=== PATIENT | female | born 1995 | race Caucasian/White ===

== ENCOUNTER 2017-07-17 15:26 | Emergency (ER) | payer OTHER ==
--- NOTE | 2017-07-17 16:06 | CPEKG ---
Heart Rate: 55 RR Interval: 1091 P-R Interval: 84 QRSD Interval: 88 QT Interval: 440 QTC Interval: 421 P [place]: 0 QRS [place]: 89 T Wave [place]: 54 EKG Severity - BORDERLINE ECG - EKG Impression: SINUS RHYTHM EKG Impression: SHORT VT INTERVAL, ACCELERATED AV CONDUCTION Electronically Signed By: Yareli Perez 17-Jul-2017 22:19:35
[2017-07-17 16:18] LABS: PLATELET COUNT 256 10^3/uL (150-400)
--- NOTE | 2017-07-17 16:52 | EDPHY ---
H & P Smoking Status: Never smoked Time Seen by Provider: 07/17/17 15:37 HPI/ROS: CHIEF COMPLAINT: Pleuritic chest pain HISTORY OF PRESENT ILLNESS: 22-year-old female presents to the emergency department with pleuritic chest pain that has been intermittent over last several days. She states that she does not feel short of breath but feels that if she takes a big deep breath she has pain in her chest. She was initially seen at the [facility] and she was advised to come to the emergency department for evaluation. She has no headache. She has no abdominal pain. No calf pain or swelling. She has never had pain like this in the past. She does report that she has been under a great deal of stress lately studying for finals. She also reports a sensation where her vision is lost which she has had it a few times intermittently over last several weeks. She does not currently have that sensation now. Her last episode was in class earlier today. No pertinent family history of early heart disease. REVIEW OF SYSTEMS: Constitutional: No fever, no chills. Eyes: No double or blurry vision. ENT: No sore throat. Respiratory: No cough, no shortness of breath. Cardiac: Chest pain as above. Gastrointestinal: No abdominal pain, vomiting or diarrhea. Genitourinary: No dysuria. Musculoskeletal: No neck or back pain. Skin: No rashes. Neurological: No headache. (Elizabeth Cerna) Past Medical/Surgical History: Negative (Elizabeth Cerna) Social History: [employer] student (Elizabeth Cerna) Physical Exam: General Appearance: Alert, no distress. 117/75, 96% on room air, heart rate 66 Eyes: Pupils equal and round. Extraocular motions are all intact. ENT: Mouth: Mucous membranes moist. Respiratory: No wheezing, rhonchi, or rales, lungs are clear to auscultation. Unable to reproduce pain with palpation to the anterior aspect of the chest. No palpable crepitus or other bony abnormality. Cardiovascular: Regular rate and rhythm. Gastrointestinal: Abdomen is soft and nontender, no masses, no rebound or guarding, bowel sounds normal. Neurological: Alert and oriented x 3, cranial nerves II through XII grossly intact Skin: Warm and dry, no rashes. Musculoskeletal: Nontender to palpate along the cervical, thoracic or lumbar spine. Neck is supple. Extremities: Full range of motion and no peripheral edema. Psychiatric: Patient is oriented X 3, there is no agitation. (Elizabeth Cerna) Constitutional: Initial Vital Signs Temperature (C) 37.2 C 07/17/17 15:33 Heart Rate 66 07/17/17 15:33 Respiratory Rate 16 07/17/17 15:33 Blood Pressure 117/75 07/17/17 15:33 O2 Sat (%) 96 07/17/17 15:33 O2 Delivery Mode Room Air Allergies/Adverse Reactions: No Known Allergies Allergy (Unverified 07/17/17 15:33) Home Medications: Medication Instructions Recorded Vyvanse 07/17/17 Medical Decision Making - Diagnostics Imaging: I viewed and interpreted images myself - Diagnostics EKG Interpretation: 12 lead EKG is interpreted in Trace master View by emergency department physician. (Yareli Perez) Imaging Results: Imaging Impressions Chest X-Ray 07/17/17 15:43 Impression: Normal chest x-ray. ED Course/Re-evaluation: 22-year-old female presents to the emergency department pleuritic chest pain. She does not feel short of breath. She has had no recent travel. She has no calf pain or swelling. A D-dimer was normal. I doubt pulmonary embolism. The case was discussed with Dr. Yareli Perez, secondary supervising physician, who did not directly evaluate the patient but agrees with treatment and plan. Laboratory studies are normal. Chest x-rays unremarkable. EKG reveals normal sinus rhythm. (Elizabeth Cerna) The patient was evaluated and managed by the physician human resources assistant. I have reviewed this chart and I agree with the findings and plan of care as documented , as indicated by my signature. I am the secondary supervising physician. ( Yareli Perez) Differential Diagnosis: Chest pain including but not limited to myocardial ischemia, pulmonary embolus, chest wall pain, pleural inflammation and pulmonary infectious causes. Shortness of breath including but not limited to pulmonary infectious process, COPD, asthma, pulmonary embolus and congestive heart failure. (Elizabeth Cerna) - Data Points Laboratory Results: Laboratory Results 07/17/17 16:01 07/17/17 16:01 07/17/17 07/17/17 07/17/17 16:01 16:01 16:01 WBC RBC Hgb Hct MCV MCH MCHC RDW Plt Count MPV Neut % (Auto) Lymph % (Auto) [place] % (Auto) Eos % (Auto) Baso % (Auto) Nucleat RBC Rel Count Absolute Neuts (auto) Absolute Lymphs (auto) Absolute Monos (auto) Absolute Eos (auto) Absolute Basos (auto) Absolute Nucleated RBC Immature Gran % Immature Gran # D-Dimer 0.29 ug/mLFEU ug/mLFEU (0.00-0.50) Sodium 140 mEq/L mEq/L (135-145) Potassium 4.4 mEq/L mEq/L (3.5-5.2) Chloride 105 mEq/L mEq/L (97-110) Carbon Dioxide 26 mEq/l mEq/l (22-31) Anion Gap 9 mEq/L mEq/L (8-16) BUN 15 mg/dL mg/dL (7-23) Creatinine 0.6 mg/dL mg/dL (0.6-1.0) Estimated GFR > 60 Glucose 82 mg/dL mg/dL (70-100) Calcium 9.3 mg/dL mg/dL (8.5-10.4) Beta HCG, Qual NEGATIVE 07/17/17 16:01 WBC 7.84 10^3/uL 10^3/uL (3.80-9.50) RBC 4.73 10^6/uL 10^6/uL (4.18-5.33) Hgb 14.4 g/dL g/dL (12.6-16.3) Hct 41.4 % % (38.0-47.0) MCV 87.5 fL fL (81.5-99.8) MCH 30.4 pg pg (27.9-34.1) MCHC 34.8 g/dL g/dL (32.4-36.7) RDW 12.3 % % (11.5-15.2) Plt Count 256 10^3/uL 10^3/uL (150-400) MPV 9.3 fL fL (8.7-11.7) Neut % (Auto) 51.6 % % (39.3-74.2) Lymph % (Auto) 39.4 % % (15.0-45.0) [place] % (Auto) 7.1 % % (4.5-13.0) Eos % (Auto) 1.0 % % (0.6-7.6) Baso % (Auto) 0.5 % % (0.3-1.7) Nucleat RBC Rel Count 0.0 % % (0.0-0.2) Absolute Neuts (auto) 4.04 10^3/uL 10^3/uL (1.70-6.50) Absolute Lymphs (auto) 3.09 10^3/uL H 10^3/uL (1.00-3.00) Absolute Monos (auto) 0.56 10^3/uL 10^3/uL (0.30-0.80) Absolute Eos (auto) 0.08 10^3/uL 10^3/uL (0.03-0.40) Absolute Basos (auto) 0.04 10^3/uL 10^3/uL (0.02-0.10) Absolute Nucleated RBC 0.00 10^3/uL 10^3/uL (0-0.01) Immature Gran % 0.4 % % (0.0-1.1) Immature Gran # 0.03 10^3/uL 10^3/uL (0.00-0.10) D-Dimer Sodium Potassium Chloride Carbon Dioxide Anion Gap BUN Creatinine Estimated GFR Glucose Calcium Beta HCG, Qual Departure - Departure Disposition: Home, Routine, Self-Care Clinical Impression: Chest pain Qualifiers: Chest pain type: unspecified Qualified Code(s): R07.9 - Chest pain, unspecified Condition: Good Instructions: Chest Pain (ED) Additional Instructions: Activity as tolerated. Return to the emergency department if you developed recurring chest pain especially chest pain with activity, or if you feel worse in any way. 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
[2017-07-17 17:11] VITALS: BP 100/59
== END 2017-07-17 17:11 | disposition home or self-care (01) ==
DX: R07.9 Chest pain, unspecified (principal)

== ENCOUNTER 2018-01-26 21:11 | Emergency (ER) | payer OTHER ==
[2018-01-26] MEDS ORDERED: NS 1,000 ML IV ONE (21:51)
--- NOTE | 2018-01-26 21:51 | EDPHY ---
H & P Stated Complaint: DIZZINESS,NAUSEA,SOB,BRIEF VISION LOSS X 6/SINCE 1300 Time Seen by Provider: 01/26/18 21:47 HPI/ROS: HPI: This is a 22-year-old female who presents with Chief Complaint: DIZZINESS,NAUSEA,SOB,BRIEF VISION LOSS X 6/SINCE 1300 Location: Head Quality: Lightheadedness Duration: Started at 1:00 p.m. Signs and Symptoms: no fever, + nausea, no vomiting, no hematemesis, no blood in stool, no abdominal bloating, no diarrhea, no back pain, no urinary symptoms , no vaginal bleeding/discharge, no indigestion, no chest pain, no shortness of breath, + palpitations Timin intermittent episodes Severity: [id number] Context: Patient is originally from [place], student at [employer], presents with complaints of sudden onset around 1:00 p.m. 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 She felt like she had some heart palpitations when this occurred. She then had brief peripheral vision loss that lasted a few seconds. She says that this lasted approximately 1-3 minutes and then self-resolved. She re-presented today around 9:00 p.m. With similar complaints. LMP 1-7 days ago. She denies any recent alcohol or drug use. She reports that she eats healthy and drinks plenty of water throughout the day. Denies fever, neck stiffness, urinary symptoms, vaginal bleeding. Modifying Factors: None Comment: ROS: A comprehensive 10 system review of systems is otherwise negative aside from elements mentioned in the history of present illness. MEDICAL/SURGICAL/SOCIAL HISTORY: Medical history: Generally healthy. Does not take any regular medications. Surgical history: Appendectomy, adenoidectomy Social history: Nonsmoker. Family history noncontributory. CONSTITUTIONAL: Well-developed, well-nourished young adult white female, awake and alert, no obvious distress HEENT: Atraumatic and normocephalic, PERRL, EOMI. Nares patent; no rhinorrhea; no nasal mucosal edema. Tympanic membranes clear. Oropharynx clear, no exudate and moist pink mucosa. Airway patent. No lymphadenopathy. No meningismus. Cardiovascular: Normal S1/S2, regular rate, regular rhythm, without murmur rub or gallop. PULMONARY/CHEST: Symmetrical and nontender. Clear to auscultation bilaterally. Good air movement. No accessory muscle usage. ABDOMEN: Soft, nondistended, nontender, no rebound, no guarding, no peritoneal signs, no masses or organomegaly. No CVAT. EXTREMITIES: 2/2 pulses, strength 5/5, no deformities, no clubbing, no cyanosis or edema. NEUROLOGICAL: no focal neuro deficits. GCS 15. SKIN: Warm and dry, no erythema. no rash. Good capillary refill. Source: Patient Exam Limitations: No limitations - Personal History LMP (Females 10-55): 1-7 Days Ago Current Tetanus Diphtheria and Acellular Pertussis (TDAP): Yes - Medical/Surgical History Hx Asthma: No Hx Chronic Respiratory Disease: No Hx Diabetes: No Hx Cardiac Disease: No Hx Renal Disease: No Hx Cirrhosis: No Hx Alcoholism: No Hx HIV/AIDS: No Hx Splenectomy or Spleen Trauma: No Other PMH: appy, adenoidectomy, - Social History Smoking Status: Never smoked Constitutional: Initial Vital Signs Temperature (C) 37.0 C 01/26/18 21:21 Heart Rate 80 01/26/18 21:21 Respiratory Rate 18 01/26/18 21:21 Blood Pressure 118/77 01/26/18 21:21 O2 Sat (%) 96 01/26/18 21:21 O2 Delivery Mode Room Air Allergies/Adverse Reactions: bee venom protein (honey bee) Allergy (Verified 01/26/18 21:20) lemon Allergy (Verified 01/26/18 21:20) Home Medications: Medication Instructions Recorded [place] 07/17/17 Medical Decision Making ED Course/Re-evaluation: Vital signs reviewed and stable upon arrival. IV access and laboratory studies ordered. Orthostatics within normal limits 1 L normal saline given Wells criteria is low for pulmonary embolism. ddimer ordered. EKG my read shows normal sinus rhythm, rate of 66 beats per minute No acute ischemic changes. No arrhythmias. No Heart block. 2230: Labs reviewed. No signs of leukocytosis/anemia/platelet dysfunction/CLAUDIA/ electrolyte imbalance//VTE/thyroid disease. No signs of sepsis, CVA, migraine, vertigo, otitis media, thyroid disease This patient was seen under the supervision of my secondary supervising physician. I evaluated care for this patient independently. Discussed this patient with Dr. Grace. Differential Diagnosis: Differential diagnosis includes but is not limited to thyroid disease, anemia, electrolyte imbalance, intoxicated use, acute kidney injury, anxiety. - Data Points Laboratory Results: Laboratory Results 01/26/18 22:05 01/26/18 22:05 01/26/18 01/26/18 01/26/18 22:05 22:05 22:05 WBC RBC Hgb Hct MCV MCH MCHC RDW Plt Count MPV Neut % (Auto) Lymph % (Auto) [place] % (Auto) Eos % (Auto) Baso % (Auto) Nucleat RBC Rel Count Absolute Neuts (auto) Absolute Lymphs (auto) Absolute Monos (auto) Absolute Eos (auto) Absolute Basos (auto) Absolute Nucleated RBC Immature Gran % Immature Gran # D-Dimer < 0.27 ug/mLFEU ug/mLFEU (0.00-0.50) Sodium 137 mEq/L mEq/L (135-145) Potassium 3.8 mEq/L mEq/L (3.3-5.0) Chloride 102 mEq/L mEq/L (97-110) Carbon Dioxide 24 mEq/l mEq/l (22-31) Anion Gap 11 mEq/L mEq/L (6-14) BUN 12 mg/dL mg/dL (7-23) Creatinine 0.7 mg/dL mg/dL (0.6-1.0) Estimated GFR > 60 Glucose 111 mg/dL H mg/dL (70-100) Calcium 9.5 mg/dL mg/dL (8.5-10.4) Total Bilirubin 0.6 mg/dL mg/dL (0.1-1.4) Conjugated Bilirubin 0.2 mg/dL mg/dL (0.0-0.5) Unconjugated Bilirubin 0.4 mg/dL mg/dL (0.0-1.1) AST 23 IU/L IU/L (14-46) ALT 26 IU/L IU/L (9-52) Alkaline Phosphatase 58 IU/L IU/L (38-126) Total Protein 7.6 g/dL g/dL (6.3-8.2) Albumin 4.5 g/dL g/dL (3.5-5.0) TSH 3.160 uIU/mL uIU/mL (0.465-4.680) Free T4 1.07 ng/dL ng/dL (0.59-2.19) Beta HCG, Qual NEGATIVE 01/26/18 22:05 WBC 7.75 10^3/uL 10^3/uL (3.80-9.50) RBC 4.65 10^6/uL 10^6/uL (4.18-5.33) Hgb 14.6 g/dL g/dL (12.6-16.3) Hct 40.7 % % (38.0-47.0) MCV 87.5 fL fL (81.5-99.8) MCH 31.4 pg pg (27.9-34.1) MCHC 35.9 g/dL g/dL (32.4-36.7) RDW 12.5 % % (11.5-15.2) Plt Count 278 10^3/uL 10^3/uL (150-400) MPV 9.3 fL fL (8.7-11.7) Neut % (Auto) 48.7 % % (39.3-74.2) Lymph % (Auto) 44.3 % % (15.0-45.0) [place] % (Auto) 5.5 % % (4.5-13.0) Eos % (Auto) 0.5 % L % (0.6-7.6) Baso % (Auto) 0.6 % % (0.3-1.7) Nucleat RBC Rel Count 0.0 % % (0.0-0.2) Absolute Neuts (auto) 3.77 10^3/uL 10^3/uL (1.70-6.50) Absolute Lymphs (auto) 3.43 10^3/uL H 10^3/uL (1.00-3.00) Absolute Monos (auto) 0.43 10^3/uL 10^3/uL (0.30-0.80) Absolute Eos (auto) 0.04 10^3/uL 10^3/uL (0.03-0.40) Absolute Basos (auto) 0.05 10^3/uL 10^3/uL (0.02-0.10) Absolute Nucleated RBC 0.00 10^3/uL 10^3/uL (0-0.01) Immature Gran % 0.4 % % (0.0-1.1) Immature Gran # 0.03 10^3/uL 10^3/uL (0.00-0.10) D-Dimer Sodium Potassium Chloride Carbon Dioxide Anion Gap BUN Creatinine Estimated GFR Glucose Calcium Total Bilirubin Conjugated Bilirubin Unconjugated Bilirubin AST ALT Alkaline Phosphatase Total Protein Albumin TSH Free T4 Beta HCG, Qual Medications Given: Discontinued Medications Sodium Chloride (Ns) 1,000 mls @ 0 mls/hr IV ONCE ONE; Wide Open PRN Reason: Protocol Stop: 01/26/18 21:52 Last Admin: 01/26/18 22:07 Dose: 1,000 mls Departure - Departure Disposition: Home, Routine, Self-Care Clinical Impression: Episode of dizziness Condition: Good Instructions: Dizziness (ED) Additional Instructions: Rest as much as possible until you are feeling better. Consume a minimum of 8-10 glasses of water or electrolyte fluid replacement drinks that include Gatorade, Powerade, Pedialyte. [facility] if symptoms persist. Return to the ER immediately if you have progressive headaches, neurologic deficits, gait abnormality, visual disturbance, slurred speech, or any other symptom that concerns you. Referrals: ANDREW NICE [Other] - Follow Up Only If Needed [facility],. [Clinic] - 2-3 days, if not improved Breezy Hernandez MD [Medical Doctor] - As per Instructions
[2018-01-26 22:12] LABS: PLATELET COUNT 278 10^3/uL (150-400)
[2018-01-26 22:57] VITALS: BP 115/83
--- NOTE | 2018-01-29 09:25 | CPEKG ---
Test Reason : OPEN Blood Pressure : / mmHG Vent. Rate : 066 BPM Atrial Rate : 065 BPM P-R Int : 123 ms QRS Dur : 094 ms QT Int : 419 ms P-R-T Axes : 043 092 033 degrees QTc Int : 439 ms Sinus rhythm Borderline right axis deviation Confirmed by Akil Streeter ([id number]) on 01/29/2018 9:25:18 AM Referred By: Confirmed By:Akil Streeter
== END 2018-01-26 22:55 | disposition home or self-care (01) ==
DX: R42 Dizziness and giddiness (principal); E86.9 Volume depletion, unspecified; R11.0 Nausea; R00.2 Palpitations; H54.7 Unspecified visual loss

== ENCOUNTER 2018-08-20 04:13 | Emergency (ER) | payer OTHER | END 2018-08-20 07:00 | disposition home or self-care (01) ==